=== PATIENT | female | born 1990 | race Hispanic/Latino ===

== ENCOUNTER 2019-07-06 17:13 | Emergency (ER) | payer MEDICAID, OTHER ==
[2019-07-06] MEDS ORDERED: ACETAMINOPHEN EXTRA STRENGTH 500 MG TABLET ONE (17:35)
[2019-07-06 17:51] LABS: APPEARANCE,URINE CLOUDY (CLEAR); BILIRUBIN,URINE NEGATIVE (NEGATIVE); COLOR,URINE YELLOW (YELLOW); GLUCOSE, URINE (UA) NEGATIVE (NEGATIVE); KETONES,URINE NEGATIVE (NEGATIVE); LEUKOCYTE ESTERASE ,URINE NEGATIVE (NEGATIVE); NITRATE,URINE NEGATIVE (NEGATIVE); OCCULT BLOOD,URINE MODERATE (NEGATIVE); PH,URINE 5.5 (5.0-8.0); PROTEIN,URINE 30 mg/dL (NEGATIVE)
[2019-07-06 17:58] LABS: HCG,QUAL RESULT NEGATIVE (NEGATIVE)
[2019-07-06 18:05] LABS: RAPID GROUP A STREP NEGATIVE (NEGATIVE)
[2019-07-06 18:06] LABS: BACTERIA,URINE Many /HPF (None Seen); SQUAMOUS EPITHELIAL CELL,UR 0-2 /HPF (0-2)
[2019-07-06] MEDS ORDERED: IBUPROFEN 600 MG TABLET ONE (18:39)
== END 2019-07-06 18:56 | disposition home or self-care (01) ==
LOC: EDH 17:13
DX: J06.9 Acute upper respiratory infection, unspecified (principal)
CPT/HCPCS: 81001; 81025; 82948; 87804; 87880